=== PATIENT | male | born 1970 | race Caucasian/White ===

== ENCOUNTER 2017-06-06 08:29 | Inpatient (IN) | payer OTHER ==
[~2017-06-06] VITALS: Ht 167.6 cm; Wt 87.1 kg
[2017-06-06] VITALS (13 sets, daily range): BP systolic 103–138; BP diastolic 61–85
[~2017-06-06 08:29] MED LIST: Dexamethasone 20mg/5ml IVP ONE; ceFAZolin sod 1 GM in NS 55 ML IVPB ONE
[2017-06-06] MEDS ORDERED: VITAMIN B COMP1 EAC2 ORAL (09:14)
[2017-06-06] MEDS ORDERED: ATORVASTATIN CA20 MG ORAL (09:14)
[2017-06-06] MEDS ORDERED: OMEPRAZOLE20 M2 ORAL (09:14)
[2017-06-06] MEDS ORDERED: ASPIR-LOW81 MG ORAL (09:14)
[2017-06-06] MEDS ORDERED: VENLAFAXINE HCL75 MG ORAL (09:14)
[2017-06-06] MEDS ORDERED: LISINOPRIL-HCT1 EAC2 ORAL (09:14)
[2017-06-06] MEDS ORDERED: LR 1000ml 1,000 ML IVLG SCH (09:32)
--- NOTE | 2017-06-06 09:32 | Anethesia Preoperative Eval ---
Anesthesia Pre-op PMH/ROS General Date of Evaluation: Jun 06, 2017 Time of Evaluation: 10:41 Anesthesiologist: Caroline ASA Score: ASA 3 Mallampati Score Class I : Soft palate, uvula, fauces, pillars visible Class II: Soft palate, uvula, fauces visible Class III: Soft palate, base of uvula visible Class IV: Only hard plate visible Mallampati Classification: Class II Surgeon: Jazlyn Diagnosis: Neck Pain Surgical Procedure: ACDF C4-5, C5-6 Anesthesia History: none Family History: no anesthesia problems Allergies: Coded Allergies: No Known Allergies (Unverified , 06/04/17) Medications: see eMAR Past Medical History Cardiovascular: Reports: HTN, other - HL Gastrointestinal/Genitourinary: Reports: GERD Other: obesity - BMI 33 Anesthesia Pre-op Phys. Exam Physician Exam Last Vital Signs Date Time Temp Pulse Resp B/P (MAP) Pulse Ox O2 Delivery O2 Flow Rate FiO2 06/06/17 09:29 98.1 84 20 133/85 98 Room Air Constitutional: NAD Neurologic: CN 2-12 intact Cardiovascular: RRR Respiratory: CTA Gastrointestinal: S/NT/ND Airway Exam Mallampati Score: Class II MO: full ROM: limited Teeth: intact Anesthesia Pre-op A/P Risk Assessment & Plan Assessment: ASA 3 Plan: GA, BIS, GlideScope Status Change Before Surgery: No Pre-Antibiotics Dru Grams Ancef IV Given Within 1 Hr of Incision: Yes Time Given: 11:01 Konstantin Velazquez MD Jun 06, 2017 09:32
[2017-06-06] MEDS ORDERED: Norco 5mg/325mg tab ORAL PRN (09:45)
[2017-06-06] MEDS ORDERED: Atropine Inj 1mg/10ml Syr IV PRN (09:45)
[2017-06-06] MEDS ORDERED: Hydromorphone 0.5mg/0.5ml inj IVP PRN ×2 (09:45→16:30)
[2017-06-06] MEDS ORDERED: Metoclopramide 10mg/2ml Inj IVP PRN (09:45)
[2017-06-06] MEDS ORDERED: Midazolam 2mg/2ml Inj IVP PRN (09:45)
[2017-06-06] MEDS ORDERED: Ketorolac 60mg Inj IV PRN (09:45)
[2017-06-06] MEDS ORDERED: Ketorolac 30mg Inj IV PRN (09:45)
[2017-06-06] MEDS ORDERED: LORazepam Inj 2mg/ml 1ml IV PRN (09:45)
[2017-06-06] MEDS ORDERED: DiphenhydrAMINE 50mg/ml Inj IVP PRN (09:45)
[2017-06-06] MEDS ORDERED: fentaNYL 100 mcg/2 mL IV PRN (09:45)
[2017-06-06] MEDS ORDERED: oxyCODONE HCL/Acetaminophen 5/325mg ORAL PRN (09:45)
[2017-06-06] MEDS ORDERED: Norco 7.5mg/325mg tab ORAL PRN (09:45)
[2017-06-06] MEDS ORDERED: Acetaminophen (Non formulary) 100 ML IV ONE (10:00)
[2017-06-06] MEDS ORDERED: Surgicel 4in x 8in TOPIC ONE (10:14)
[2017-06-06] MEDS ORDERED: Thrombin 5000 units TOPIC ONE (10:14)
[2017-06-06] MEDS ORDERED: Vancomycin 1gm inj IVPB ONE (10:15)
[2017-06-06] MEDS ORDERED: Lidocaine 1% Plain 30 ml INJ ONE ×2 (10:16→11:00)
[2017-06-06] MEDS ORDERED: Bacitracin 50000 Units Vial ONE (10:16)
--- NOTE | 2017-06-06 10:34 | Pre-Procedure Note/Attestation ---
Pre-Procedure Note/Attestation Complete Prior to Procedure Procedure Narrative: ACDF C5-C6, possible C4-C5 Anterior internal fixation Indications for Procedure Pre-Operative Diagnosis: Post traumatic herniated nucleuc proposus, cord compression, neck pain Attestation I attest that I discussed the nature of the procedure; its benefits; risks and complications; and alternatives (and the risks and benefits of such alternatives ), prior to the procedure, with the patient (or the patient's legal pharmaceutical service representative). I attest that, if there was a reasonable possibility of needing a blood transfusion, the patient (or the patient's legal pharmaceutical service representative) was given the [facility] standardized written summary, pursuant to the [facility] Blood Safety Act ([place] Health and Safety Code # 1645, as amended). I attest that I re-evaluated the patient just prior to the surgery and that there has been no change in the patient's H&P, except as documented below: JENNY PINEDA Jun 06, 2017 10:34
[2017-06-06] MEDS ORDERED: fentaNYL 100 mcg/2 mL IV ONE (11:00)
[2017-06-06] MEDS ORDERED: Nimbex 2mg/ml Inj 10ML IVP ONE (11:00)
[2017-06-06] MEDS ORDERED: Lidocaine 1% MPF 10mg/ml 5ml ONE (11:00)
[2017-06-06] MEDS ORDERED: Neostigmine 1mg/ml 10ml Inj ONE (11:00)
[2017-06-06] MEDS ORDERED: Zemuron 50mg/5ml Inj IV ONE (11:00)
[2017-06-06] MEDS ORDERED: LR 1000ml ONE (11:00)
[2017-06-06] MEDS ORDERED: Glycopyrrolate 0.2mg/ml 1ml Vial ONE (11:00)
[2017-06-06] MEDS ORDERED: Dexamethasone 4mg/ml vial ONE (11:00)
[2017-06-06] MEDS ORDERED: Propofol 1,000mg/ 100ml btl IV ONE (11:00)
--- NOTE | 2017-06-06 13:44 | Brief Operative Note ---
Immediate Post Operative Note Operative Note Pre-op Diagnosis: Post traumatic herniated nucleuc proposus, cord compression, neck pain Procedure: Hemivertebrectomy C4, C5, C6. Interbody reconstruction / fusion, correction deformity, placement osteopromotive material C4-5, C5-6 Anterior internal plate fixation C4-5-6 SSEP High power mag disection Post-op Diagnosis: same as pre-op Findings: consistent w/pre-op dx studies Surgeon: Jazlyn ALVARADO Labor And Delivery Nurse: Lars MCMILLAN Anesthesiologist: Caroline ALVARADO Anesthesia: general Specimen: none Complications: none Condition: stable Fluids: anesthesia Estimated Blood Loss: minimal Drains: none Implant(s) used?: Yes JENNY PINEDA Jun 06, 2017 13:44
--- NOTE | 2017-06-06 14:06 | Immediate Post-Op Evaluation ---
Immediate Post-Op Evalulation Immediate Post-Op Evalulation Procedure: ACDF C4-5,C5-6 Date of Evaluation: Jun 06, 2017 Time of Evaluation: 14:15 IV Fluids: 1000 LR Blood Products: 0 Estimated Blood Loss: 50 Urinary Output: 0 Blood Pressure Systolic: 135 Blood Pressure Diastolic: 80 Pulse Rate: 101 Respiratory Rate: 16 O2 Sat by Pulse Oximetry: 100 Temperature (Fahrenheit): 98.5 Pain Score (1-10): 2 Nausea: No Vomiting: No Complications 0 Patient Status: awake, reacts, patent, extubated, none Hydration Status: adequate Dru Grams Ancef IV Given Within 1 Hr of Incision: Yes Time Given: 11:01 Konstantin Velazquez MD Jun 06, 2017 14:06
--- NOTE | 2017-06-06 14:08 | 48 Hour Post Anesthesia Eval ---
Post Anesthesia Evaluation Procedure: ACDF C4-5,C5-6 Date of Evaluation: Jun 06, 2017 Time of Evaluation: 16:31 Blood Pressure Systolic: 147 0: 78 Pulse Rate: 76 Respiratory Rate: 18 Temperature (Fahrenheit): 98.6 O2 Sat by Pulse Oximetry: 100 Airway: patent Nausea: No Vomiting: No Pain Intensity: 2 Hydration Status: adequate Cardiopulmonary Status: Stable Mental Status/LOC: patient returned to baseline Follow-up Care/Observations: 0 Post-Anesthesia Complications: 0 Follow-up care needed: ready to discharge Konstantin Velazquez MD Jun 06, 2017 14:08
[2017-06-06] MEDS ORDERED: Norco 10mg/325mg tab ORAL PRN (16:30)
[2017-06-06] MEDS ORDERED: HYDROmorphone 1mg/ml Carpuject SUBQ PRN (16:30)
[2017-06-06] MEDS ORDERED: HYDROmorphone 1mg/ml Carpuject IVP PRN (16:30)
[2017-06-06] MEDS ORDERED: Hydromorphone 0.5mg/0.5ml inj SUBQ PRN (16:30)
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
[2017-06-06] MEDS ORDERED: D5 1/2NS 1,000 ML IV SCH (17:30)
--- NOTE | 2017-06-06 17:55 | Diagnostic Imaging Report ---
FLUOROSCOPIC IMAGES FROM SURGICAL PROCEDURE Indication: Upper extremity pain Operating surgeon: JENNY PINEDA Total fluoroscopy time: 7.6 seconds Total fluoroscopy dose: 0.65 mGy Technique: 2 fluoroscopic images from surgical procedure submitted for archival the PACS. Comparison: None Findings: 2 lateral fluoroscopic views of the cervical spine obtained during surgical procedure were submitted. There are multilevel degenerative changes of the cervical spine. First image demonstrates surgical measurement at the level of C5-C6. Final image demonstrates patient status post ACDF from C4 to C6 with anterior plate affixed by screws and interbody spacers. Impression: Fluoroscopic images from surgical procedure. Please see operative report.
[2017-06-06] MEDS ORDERED: ceFAZolin sod 1 GM in D5W 55 ML IV SCH (19:00)
--- NOTE | 2017-06-07 00:30 | Operative Note - Dictated ---
DATE OF OPERATION: 06/06/2017 SURGEON: Jonnathan Hobson M.D. BRAKE LINING DRILLER: DEYANIRA Miller. ANESTHESIA: Konstantin Velazquez M.D. ANESTHESIA: General with intubation. 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 Cord compression. 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 Cord compression. INTRAOPERATIVE OBSERVATION: C5-C6 large anterior osteophyte, large hard disk herniation through the posterior longitudinal ligament with dural compression, large anterior osteophytes C4-C5. OPERATIVE PROCEDURE: Anterior bartolo-vertebrectomy C4, C5, and C6, decompression in spinal cord with resection of hard herniated nucleus polyposis C5-C6 with dural compression, cord compression. SSEP monitoring. Interbody reconstruction, correction deformity C4-C5 and C5-C6, osteopromotive material placement, fusion C4-C5 and C5-C6, anterior internal plate fixation, bilateral 15 mm screws, [employer] manufacture C4, C5, C6. Intraoperative fluoroscopy interpreted by surgeon. High-powered microscopic dissection. ESTIMATED BLOOD LOSS: Less than 50 mL. COMPLICATIONS: None. POSTOPERATIVE CONDITION: Good/stable. DESCRIPTION OF PROCEDURE: The patient was brought to the operating room and in the supine position general anesthesia with intubation was induced. IV antibiotics, IV Decadron were administered 30 minutes prior to incision time. Incision level placement was determined cross-table imaging with a metallic marker not penetrating the skin on the right side of the neck. Appropriate positioning for incision marked on the left. Sterile pen utilized. Marker removed. Anterior cervical spine sterilely prepped and draped free in the usual sterile fashion. A transverse incision left sharply placed at the dermis and epidermis. Electrocautery dissection was carried through the subcutaneous tissue to the level of the platysmas muscle. It was identified, isolated, and transected in line with the incision. Dissection was carried medial through the left sternocleidomastoid muscle and to the carotid sheath/carotid artery/transverse incision was placed with appropriate position in the left in line with the skin folds. Sharp dissection was carried through dermis and epidermis. Electrocautery dissection through the subcutaneous tissue to the level of the platysmas muscle. It was identified, isolated, and transected in line with the incision. Dissection was carried medial to the left sternocleidomastoid muscle through the deep cervical and pretracheal fascia to the midline between the right and left longus colli muscles. Subperiosteal dissection was undertaken of the longus colli muscles of the appropriate intervals after determination of the correct level was undertaken where the spinal needle placed into the disk space/osteophyte with the needle bent at 90 degrees so as to avoid penetration greater than 3 mm. Level was marked. Needle removed. Retractors placed. C5-C6, pins were placed. Stabilization traction after retractors were placed. Large anterior osteophyte approximately 1 cm in height was resected inferior C5 and superior C6. Bartolo vertebrectomy inferior C5 and superior C6 to the posterior longitudinal ligament. Midline rent and the posterior longitudinal ligament noted. Posterior longitudinal ligament resected and under high-power microscopic magnification/dissection, a large fragment of disk with cartilage end-plate attached was removed midline asymmetric right. SSEP monitoring stable. No dural tears or leaks observed. Wound irrigated with antibiotic-containing saline. Interpositional grafting with the appropriately dimensioned titanium graft, lordotic with correction deformity. Graft containing osteopromotive material for fusion C5-C6. Graft position excellent. Attention was turned to the C4-C5 interval. Large anterior osteophyte noted approximately 1 cm in height, full width, inferior C4 and superior C5. Anterior subluxation on x-ray noted of C4 and C5. The osteophyte was resected with Midas All bur dissection under high-power magnification following bartolo vertebrectomy inferior C4 and superior C5. Interpositional grafting with a lordotic titanium graft containing osteopromotive material with excellent fit and correction deformity. All traction on the neck was removed (10 pounds) followed by anterior internal plate fixation with fluoroscopic guidance and direct observation with bilateral screws in a compressive fashion, C4/C6 with parallel screws C5, 50 mm screws. Imaging obtained demonstrated excellent alignment and position and correct level. A copy of that image obtained. Wound was irrigated with antibiotic-containing saline. Exploration revealed no obvious excoriation or laceration of vital structures. Graft incorporated in FloSeal followed with Hemashield application after the FloSeal had coagulated. Sequential reapproximation of the platysmas muscle subcutaneous tissue, dermis and epidermis with Vicryl suture material. Surgical strips applied followed application with sterile bandage and maintained in place with tape. The patient was awakened, extubated in the operating room, and transported to postoperative recovery in good stable condition. Jonnathan Hobosn M.D. DR: EROS JOB#: [id number] CC:
[2017-06-07] MEDS ORDERED: Chloraseptic Spray 20mL Bottle ORAL PRN (09:00)
[2017-06-07 09:30] VITALS: BP 145/78
--- NOTE | 2017-06-07 09:30 | 48 Hour Post Anesthesia Eval ---
Post Anesthesia Evaluation Procedure: ACDF C4-5,C5-6 Date of Evaluation: Jun 07, 2017 Time of Evaluation: 09:30 Blood Pressure Systolic: 145 0: 78 Pulse Rate: 78 Respiratory Rate: 17 Temperature (Fahrenheit): 98 O2 Sat by Pulse Oximetry: 99 Airway: patent Nausea: No Vomiting: No Hydration Status: adequate Mental Status/LOC: patient returned to baseline Post-Anesthesia Complications: none David Soni M.D. Jun 07, 2017 09:30
--- NOTE | 2017-06-07 10:44 | Discharge Summary ---
Discharge Summary Hospital Course Date of Admission Jun 06, 2017 at 08:29 Date of Discharge Jun 06, 2017 at 20:00 Admitting Diagnosis HPI Kevin Eddy is a 46 year old male who was admitted on Jun 06, 2017 at 08:29 for Cervical Disc Protrusion Hospital Course [id number] Discharge Discharge Disposition Patient was discharged to Home (01) Discharge Diagnoses: Mariela Heard NP Jun 07, 2017 10:44
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
== END 2017-06-06 20:00 | disposition home or self-care (01) | DRG 473 ==
LOC: SDSOVERFLO 08:29 → 3E 16:11
PROC: 0RG20A0 Fusion of 2 or more Cervical Vertebral Joints with Interbody Fusion Device, Anterior Approach, Anterior Column, Open Approach (ICD-10-PCS; principal; 2017-06-06 11:00)
DX: M50.021 Cervical disc disorder at C4-C5 level with myelopathy (principal); M50.122 Cervical disc disorder at C5-C6 level with radiculopathy; V89.2XXS Person injured in unspecified motor-vehicle accident, traffic, sequela
CPT/HCPCS: 36415; 72040; 76001; 86850; 86900; 86901; 87081; 94003; 94150; J2405; J2710